=== PATIENT | female | born 1940 | race Caucasian/White ===

== ENCOUNTER → 2016-11-28 | Day surgery (SDC) | payer OTHER, MEDICARE ==
[~2016-11-28] VITALS: Ht 165.1 cm; Wt 74.8 kg
[~2016-11-28] MED LIST: ASPIRIN325 PO; CARVEDILOL12.5 MG PO; COREG25 MG PO; DIOVAN HCT 3201 EAC1 PO; FLONASE 0.05%50 MCG NASAL; GLIPIZIDE 10 MG10 MG PO; HYDRALAZINE 2525 MG PO; IRON325 PO; LIPITOR10 MG PO; METFORMIN HCL500 MG PO; MULTI VITAMIN1 EACH PO; NORVASC5 MG PO; PRILOSEC OTC20 MG PO; TRAZODONE HCL50 MG PO; ZYRTEC10 M5 PO
--- NOTE | ~2016-11-28 | O ---
[facility] [place] [address] OPERATIVE REPORT Name: ORAL ANDERSEN Room #: REG [facility]#: [id number] Admission: 11/28/16 Attend Phys: Cameron Ahn MD Discharge: Date of : 36 Report #: [id number] THIS REPORT FOR: //name// CC: RAMIRO Ahn PREOPERATIVE DIAGNOSIS: Bilateral upper lid ptosis with superior visual field defects both eyes. POSTOPERATIVE DIAGNOSIS: Bilateral upper lid ptosis with superior visual field defects both eyes. OPERATION PERFORMED: Bilateral upper lid functional ptosis repair. 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 ANESTHESIA: Local with IV sedation. COMPLICATIONS: None. INDICATIONS FOR PROCEDURE: This patient has bilateral upper lid ptosis with superior visual field loss both eyes. Visual field testing demonstrates dense superior visual defects. Retesting with the upper lid elevated shows an improvement in visual field loss of over 30% and in excess of 12 degrees. The current procedure is being undertaken in order to improve the patient's visual function. Informed consent was obtained to include but not limited to the risk of loss of vision, bleeding, infection, scarring, failure to improve the problem and need for further surgery, such as adjustment of lid height. DESCRIPTION OF PROCEDURE: The patient was taken to the operating room, where 2% Xylocaine with epinephrine mixed with equal parts of 0.75% Marcaine with Wydase was administered transcutaneously to each upper lid. The patient was then prepped and draped in the usual sterile fashion. An upper lid crease incision was then made bilaterally and the dissection was carried down until the orbital septum was identified. The orbital septum was then cleared and the preaponeurotic fat identified. The levator aponeurosis was then disinserted from the anterior surface of the tarsal plate and dissected free in the avascular Walker's muscle plane. The aponeurosis was then advanced and reattached to the anterior surface of the tarsal plate with interrupted mattress 6-0 Novafil sutures on each side, adjusting for height and contour. The redundant aponeurosis was then amputated. The incision was then closed with multiple interrupted 6-0 chromic sutures that were used to recreate an upper lid [facility] [address] [place] [address] OPERATIVE REPORT Name: ANDERSENORAL Horner Room #: REG [facility].#: [id number] Admission: 11/28/16 Attend Phys: Cameron Ahn MD Discharge: Date of : 36 Report #: [id number] crease. The skin was closed with a running 6-0 plain gut suture. The wound was then cleaned and dressed with ophthalmic antibiotic ointment followed by a Telfa pad. The patient was transported to the recovery area, having tolerated the procedure well with no anesthesia or operative complications being noted. <ELECTRONICALLY SIGNED> By: Cameron Ahn MD 12/06/16 [id number] MD anjelica Arciniega
[2016-11-28 11:12] LABS: CALCIUM 9.7 mg/dL (8.5-10.1); CREATININE 1.5 mg/dL (0.6-1.0); POTASSIUM 4.1 mmol/L (3.5-5.1)
[2016-11-28 13:16] VITALS: BP 163/70
== END | disposition home or self-care (01) ==
LOC: OR 10:32
PROVIDERS: Ophthalmology
DX: H02.403 Unspecified ptosis of bilateral eyelids (principal); H53.462 Homonymous bilateral field defects, left side; H53.461 Homonymous bilateral field defects, right side
CPT/HCPCS: 50010; 50101; 50386; 50398; 51636; 56528; 56531; 62110; 62850; 70005